=== PATIENT | female | born 1940 | race Caucasian/White ===

== ENCOUNTER → 2016-09-07 | Outpatient (CLI) | payer MEDICARE ==
[~2016-09-07] MED LIST: ASPI81TA85 PO; CALC1TAB21 PO; CENTTAB PO; COQ-100C2 PO; FERR325T88 PO; FISH100049 PO; FURO20TA2 PO; FURO20VL IM; K-TA1TAB PO; LEVO150T7 PO; METF1000 PO; PARO40TA PO; PRAV10TA PO; RANI1TAB6 PO; SING10TA32 PO; VITA-115 PO; VITA10006 PO; VITA100T20 PO; VITA2000 PO
[2016-09-07 13:46] LABS: INR 0.95
[2016-09-07 13:47] LABS: MEAN CORPUSCULAR HGB CONC 31.9 g/dl (32.0-36.5); MEAN CORPUSCULAR VOLUME 100.3 fl (80.0-96.0); RED CELL DISTRIBUTION WIDTH 12.4 % (11.5-14.5); WHITE BLOOD COUNT 5.9 K/mm3 (4.0-10.0)
[2016-09-07 14:10] LABS: ALBUMIN 3.8 GM/DL (3.2-5.2); ALBUMIN/GLOBULIN RATIO 1.06 (1.00-1.93); ALKALINE PHOSPHATASE 79 U/L (45-117); ALT/SGPT 24 U/L (12-78); ANION GAP 5 MEQ/L (8-16); AST/SGOT 20 U/L (15-37); BILIRUBIN,TOTAL 0.3 MG/DL (0.2-1.0); BLOOD UREA NITROGEN 26 MG/DL (7-18); CALCIUM LEVEL 8.6 MG/DL (8.8-10.2); CARBON DIOXIDE LEVEL 31 MEQ/L (21-32); CHLORIDE LEVEL 105 MEQ/L (98-107); CREATININE FOR GFR 0.91 MG/DL (0.55-1.02); GLOMERULAR FILTRATION RATE > 60.0 (>39); GLUCOSE, FASTING 96 MG/DL (83-110); POTASSIUM SERUM 4.5 MEQ/L (3.5-5.1); SODIUM LEVEL 141 MEQ/L (136-145); TOTAL PROTEIN 7.4 GM/DL (6.4-8.2)
--- NOTE | 2016-09-07 14:57 | REP ---
PA and lateral chest: There are no comparisons. Room the right hemidiaphragm is elevated. The visualized lung rivera are clear. Cardiac size is normal. The maria d, mediastinum, and bony thorax are unremarkable. Impression: Essentially negative PA and lateral chest. Right hemidiaphragm is elevated. No comparison studies to determine if this is chronic or acute. Half Signed by Brad Lemus MD 09/07/2016 01:35 P
--- NOTE | 2016-09-07 18:33 | ECGEPIP ---
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
== END ==
LOC: M ADMPAT 09:36
PROVIDERS: ATTEND Orthopaedic Surgery
DX: Z01.818 Encounter for other preprocedural examination (principal); M17.11 Unilateral primary osteoarthritis, right knee; I45.10 Unspecified right bundle-branch block; Z79.899 Other long term (current) drug therapy

== ENCOUNTER 2016-09-18 07:03 | Inpatient (IN) | payer MEDICARE ==
[2016-09-07 11:31] VITALS: BP 186/103
[2016-09-07 11:35] VITALS: BP 178/70
--- NOTE | 2016-09-10 18:31 | HPE ---
DATE OF ADMISSION: 09/18/2016 HISTORY OF PRESENT ILLNESS: This is a pleasant female with continuing symptomatic knee osteoarthritis. She has consented for a right total knee arthroplasty per Dr. Derrick Calderón. Medical optimization is scheduled today with her primary care provider, Dr. Philippe. X-rays are consistent with advanced osteoarthritis. ALLERGIES: None known to drugs. MEDICATIONS: List includes: - paroxetine 40 mg - vitamin D 1000 units, one tablet by mouth with dinner meal daily - furosemide 20 mg one by mouth every day - metformin HCl ER 1000 mg two by mouth daily - potassium chloride 10 mEq/100 - calcium 600 plus D 600/200 mg one by mouth every day - FerrouSul 325 (65 iron) - Co-Q10 1000 mg once a day - Singulair 10 mg one by mouth every day - Synthroid 150 mcg one by mouth every day - Centrum Silver one by mouth every day - vitamin D3 Super Strength 2000 units one by mouth every day - vitamin C 500 mg - fish oil 1000 mg -vitamin B12 - pravastatin sodium 10 mg one every night at bedtime - Aspirin-Lo 81 mg one by mouth every day - ranitidine HCl 150 mg one by mouth every day MEDICAL PROBLEM LIST: Includes: 1. Bilateral knee osteoarthritis. 2. Diabetes. 3. Hypertension. 4. Heart disease. 5. Thyroid disease. 6. Hope esophagitis. PAST SURGICAL HISTORY: Positive for: 1. Hernia repair. 2. Bypass. 3. Eye surgery. 4. Tummy tuck. 5. Thyroid. FAMILY HISTORY: Pertinent for hypertension, heart disease, hypercholesteremia, arthritis, diabetes, hypertension. SOCIAL HISTORY: Denies smoking or ethanol intake. REVIEW OF SYSTEMS: She denies chest pain, shortness of breath, dyspnea on exertion, fever, chills, malaise, upper respiratory or urinary tract symptoms. States that she just is getting over a little upper respiratory cold. She is otherwise doing fine. It is not being treated. PHYSICAL EXAMINATION: Height 62.5 inches, weight 214. Temperature 97.5, blood pressure (BP) 140/68, pulse 60. She is a pleasant, overweight white female in no acute distress, alert and oriented times three. Mood and affect are appropriate. She is ambulating without overt antalgia with assistance. Some favoring of the left lower extremity. Right lower extremity was inspected. Skin temperature, sensory, motor within normal limits. She has a varus osteoarthritic alignment with positive medial joint line tenderness to palpation. Crepitance is noted about the knee through flexion and extension. The patellofemoral joint is concentric, static and dynamic. The knee is stable about the collateral ligaments, patella, and quad tendons without palpable defects. Bowel sounds are times four, soft, nontender. Chest rises symmetrically. Lungs clear to auscultation. Neck supple. Negative jugular venous distention (JVD) or bruits. Normocephalic. Chest x-ray date of exam, 09/07/2016, shows essentially negative PA and lateral chest. Right hemidiaphragm is elevated. No comparison studies to determine if this is chronic or acute, as read by Dr. Brad Lemus. EKG read by Dr. Katie Washington: Sinus rhythm with right bundle branch block. Labs showed BUN at 26, anion gap at 5, calcium level 0.6, ESR 55, RBC 3.67, hemoglobin 11.7, mean corpuscular volume 100.3, mean corpuscular hemoglobin concentration 31.9, leukocyte esterase urine auto was elevated trace. Nasal sinus culture showed Staphylococcus aureus moderate. IMPRESSION: 1. Symptomatic right knee osteoarthritis. 2 . Patient consented for right total knee arthroplasty per Dr. Derrick Calderón. 2 Medical optimization scheduled today with primary care physician (PCP), Dr. Philippe. 4. 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 5. Sequential compression devices (SCDs) and thromboembolic deterrents (TEDs) in OR. MTDD
[~2016-09-18] VITALS: Ht 160 cm; Wt 93.0 kg
[2016-09-18] VITALS (7 sets, daily range): BP systolic 138–163; BP diastolic 62–71
[2016-09-18] MEDS ORDERED: LR 1,000 ML IV SCH ×2 (07:15→12:00)
[2016-09-18] MEDS ORDERED: COUM1TAB17 PO (07:52)
[2016-09-18] MEDS ORDERED: fentaNYL 100 MCG/2 ML INJECTION (J3010) As Ordered ONE ×3 (08:20→10:09)
[2016-09-18] MEDS ORDERED: MIDAZOLAM INJ 2 MG/2 ML VIAL (J2250) As Ordered ONE ×2 (08:20→10:09)
[2016-09-18] MEDS ORDERED: ceFAZolin 1GM INJ (J0690) As Ordered ONE (09:07)
[2016-09-18] MEDS ORDERED: BUPIVACAINE HCL 0.25% 30 ML VIAL As Ordered ONE (09:07)
[2016-09-18] MEDS ORDERED: TRANEXAMIC ACID 100 MG/ML 10ML VIAL As Ordered ONE (09:07)
[2016-09-18] MEDS ORDERED: MIDAZOLAM INJ 2 MG/2 ML VIAL (J2250) IV ONE (09:30)
[2016-09-18] MEDS ORDERED: fentaNYL 100 MCG/2 ML INJECTION (J3010) IV ONE (09:30)
[2016-09-18] MEDS ORDERED: EPINEPHrine INJ 1 MG/ML 1ML VIAL/AMP As Ordered ONE (09:37)
[2016-09-18] MEDS ORDERED: ROPIvacaine 0.5% 30 ML INJECTION (J2795) ONE (09:40)
[2016-09-18] MEDS ORDERED: dexameTHASONE 10 MG/1 ML VIAL PRES.FREE (J1100) ONE (09:40)
[2016-09-18] MEDS ORDERED: ONDANSETRON 4MG/2ML VIAL (J2405) As Ordered ONE (10:09)
[2016-09-18] MEDS ORDERED: PROPOFOL 200 MG/20 ML VIAL As Ordered ONE (10:09)
[2016-09-18] MEDS ORDERED: LIDOCAINE 2% INJ 100 MG/5 ML SDV (FOR ANES.) As Ordered ONE (10:09)
[2016-09-18] MEDS ORDERED: ePHEDrine SULFATE 25 MG/5 ML(5MG/ML) SYRINGE As Ordered ONE ×2 (10:10→10:11)
[2016-09-18] MEDS ORDERED: EPINEPHrine INJ 1 MG/ML 1ML VIAL/AMP XX ONE (10:33)
[2016-09-18] MEDS ORDERED: ceFAZolin 1GM INJ (J0690) IR ONE (10:33)
[2016-09-18] MEDS ORDERED: fentaNYL 100 MCG/2 ML INJECTION (J3010) XX ONE (10:33)
[2016-09-18] MEDS ORDERED: BUPIVACAINE HCL 0.25% 30 ML VIAL XX ONE (10:33)
[2016-09-18] MEDS ORDERED: TRANEXAMIC ACID 100 MG/ML 10ML VIAL XX ONE (10:33)
[2016-09-18] MEDS ORDERED: MORPHINE PCA 1MG/ML 100ML CADD As Ordered ONE (11:48)
--- NOTE | 2016-09-18 11:55 | RO ---
DATE OF PROCEDURE: 09/18/2016 PREOPERATIVE DIAGNOSIS: Right knee osteoarthritis. POSTOPERATIVE DIAGNOSIS: Right knee osteoarthritis. PROCEDURE: Right total knee arthroplasty using PFC rotating platform, size 3 femur, size 3 tibia, 15 polyethylene and a 35 patellar button. SURGEON: Dr. Derrick Calderón CUSTOMER ACQUISITION SPECIALIST: Anastasia Calderón ANESTHESIA: Spinal. ESTIMATED BLOOD LOSS: Less than 50. COMPLICATIONS: None. INDICATIONS: 75-year-old woman who has had gradually worsening right knee pain with severe arthritis. She wished to go ahead with knee replacement having failed conservative management. She understood the nature of the procedure, the risks of bleeding, infection, damage to nerves, vessels, persistent pain, wear, loosening, blood clots, medical problems, among others. Preoperative clearance was obtained. PROCEDURE: The patient was taken to the operating room and placed in supine position after spinal anesthesia was induced. The right lower extremity was prepped and draped in the usual sterile fashion. Tourniquet was inflated after a time-out was performed. I then created a longitudinal incision over the anterior aspect of the right knee. Sharp dissection was carried down through subcutaneous tissue. I performed a medial parapatellar arthrotomy per routine, everted the patella, removed osteophytes from the femur, and then used the canal initiating reamer on the femoral side set at 5 degrees of valgus and 10. This was pinned in place by the habilitation assistant and the distal femoral cut was made by the habilitation assistant as I protected soft tissues. I then sized the femur to be a 3 and the external rotation guide was drilled and placed on the end of the femur. It was noted that her bone was quite soft, particularly along the medial side, but there were no cystic changes noted. The cutting block was then placed, size 3, this was pinned in place in the usual fashion. I made the remainder of the four cuts, protecting soft tissues. I directed our attention to the tibia. The tibial alignment guide was then placed. I was hoping to get away with a cruciate retaining knee. She did have some varus, but that was my plan, so I started with the 3 degrees slope cutting block and pinned this in place at just about a millimeter or two up from the low side of the tibia. The tibial bone was removed. Soft tissue was removed from either side of the knee and significant osteophytes removed from the posterior aspect the knee. I then made sure I had performed a medial release that was adequate and I did have to extend the medial release to some degree. I then used the spacer blocks, and a 12.5 and 15 were the sizes I was choosing between, and I was leaning more toward the 15, which seemed to a very good stability and very good alignment. The posterior cruciate ligament (PCL) was still intact. I continued with the cruciate retaining knee. I went ahead and prepared the tibia at this point by drilling and broaching using a size 3 tibial tray and then the trial components were inserted and excellent fit and alignment and tissue balance was noted. I used the size 15 and this was not overly tight and I was very pleased with the stability and range of motion. I then freehand cut the patella, removing about 7 mm of bone and sized the patella be a 35. Drilled the three holes, placed the trial button and put the knee through a range of motion. The patella tracked quite nicely and was of appropriate fit. The drill holes were placed in the end of the femur. I removed the trial components. The habilitation assistant prepared the bone cement in the modern technique on the back table. I irrigated copiously and dried the bony surfaces. Cemented on the tibial tray, impacting it in place, removing excess bone cement. Placed in a polyethylene size 15 rotating platform, size 3, and then cemented on the femoral component, having placed a little bit of cement on the posterior aspect of the femoral component. I impacted this in place, removed excess bone cement, and cemented on the patella and held this in place with the clamp. Again, removed excess bone cement. I again irrigated copiously. I placed the tranexamic acid (TXA) solution in the knee. I then started closing the deep layer with #1 Vicryl suture. A couple of stitches were able to be placed while the patellar clamp was held in place. These stitches were proximally spaced out. I then once the cement had hardened removed the patellar clamp and placed an additional two #1 Vicryl sutures around the patella and then copiously irrigated. I then placed the Stratafix suture single arm starting at the midportion of patella and I worked in one direction and the habilitation assistant worked in the other direction. A watertight closure was noted. I put the knee through a range of motion and there was excellent range of motion and stability with no clicking and the closure was watertight. I again irrigated and closed the subcutaneous with #2-0 Vicryl and the skin with neha. Sterile dressing was applied. I did insert a PainBuster catheter just through the superolateral aspect the knee and this was secured appropriately. Sterile dressing was applied. Tourniquet was deflated. She was taken to recovery room in stable condition. There were no known complications. The plan will be routine postoperative for a knee replacement.
[2016-09-18] MEDS: HumaLOG INSULIN (NovoLOG) PER UNIT SC SCH ×3 (12:00→20:06)
[2016-09-18] MEDS ORDERED: NALOXONE INJ 0.4 MG/1 ML VIAL (J2310) IV PRN (12:00)
[2016-09-18] MEDS ORDERED: MORPHINE PCA 1MG/ML 100ML CADD IV PRN (12:00)
[2016-09-18] MEDS ORDERED: PERCOCET 5MG/325MG TAB PO PRN (12:00)
[2016-09-18] MEDS ORDERED: EPIDURAL/PCA KEYS XX PRN (12:00)
[2016-09-18] MEDS ORDERED: ONDANSETRON 4MG/2ML VIAL (J2405) IV PRN ×3 (12:00)
[2016-09-18] MEDS ORDERED: METOCLOPRAMIDE INJ 10MG/2ML VIAL (J2765) IV PRN (12:00)
[2016-09-18] MEDS ORDERED: NALBUPHINE HCL 10 MG/ML AMP (J2300) IV PRN (12:00)
[2016-09-18] MEDS ORDERED: fentaNYL 100 MCG/2 ML INJECTION (J3010) IV PRN (12:00)
[2016-09-18] MEDS ORDERED: PATIENT IS CURRENTLY ON AN ON-Q PAIN BUSTER PAIN RELIEF SYSTEM XX SCH (12:00)
[2016-09-18] MEDS ORDERED: diphenhydrAMINE INJ 50MG/ML VIAL (J1200) IV PRN (12:00)
[2016-09-18] MEDS ORDERED: DEXTROSE 50% 50 ML SYRINGE IV PRN (13:15)
[2016-09-18] MEDS ORDERED: GLUCAGON FOR INJ 1 MG VIAL (J1610) SC PRN (13:15)
[2016-09-18] MEDS ORDERED: GLUCOSE 4 GM CHEW TABLET PO PRN (13:15)
--- NOTE | 2016-09-18 14:56 | CR ---
DATE OF CONSULTATION: 09/18/2016 CONSULTATION REPORT FOR: Dr. Calderón PRIMARY CARE PROVIDER: Dr. Jake Philippe CHILD CENTER ASSISTANT: Dr. Keyes BRADDER: Dr. Gonzalez REASON FOR CONSULTATION: Medical management. HISTORY OF PRESENT ILLNESS: This is a 75-year-old female patient with underlying medical history of obstructive sleep apnea, type 2 diabetes, history of gastric bypass, coronary artery disease with valvular heart disease, hypothyroidism, hypertension, Hope's esophagitis, osteoarthritis, depression, chronic obstructive pulmonary disease (COPD), congestive heart failure. Patient admitted under orthopedic service for right total knee replacement surgery, status post surgery. Seen in the postanesthesia care unit (PACU). Surgery done by Dr. Derrick Calderón. Patient comfortable in no acute distress. Denies any significant pain. Denies any chest pain, pressure, or discomfort. Denies any shortness of breath. Denies any fevers or chills. Uses continuous positive airway pressure (CPAP) at night. Does not use oxygen at home. Denies smoking or alcohol usage. Denies illicit drug use. ALLERGIES: No known drug allergies. PAST MEDICAL HISTORY: 1. Type 2 diabetes, noninsulin dependent. 2. Hypertension. 3. Coronary artery disease with valvular heart disease. 4. Hypothyroidism. 5. Hope's esophagitis. 6. Obstructive sleep apnea. 7. COPD. 8. Osteoarthritis. 9. Hypothyroidism. PAST SURGICAL HISTORY: 1. Gastric bypass. 2. Tummy tuck. 3. Abdominal hernia repair. 4. Eye surgery for retinal detachment. 5. Thyroid resection. SOCIAL HISTORY: Patient lives at home with and family. Denies history of smoking, illicit drug use, or alcohol intake. FAMILY HISTORY: Parents with coronary artery disease, hypertension, dyslipidemia, diabetes. REVIEW OF SYSTEMS: Patient denies any headache, vision change, hearing change. Denies any lightheadedness. Denies any nausea, vomiting, shortness of breath, coughing. Denies any chest pain, pressure, discomfort, palpitations. Denies any abdominal pain, diarrhea, constipation. Denies any dysuria. Denies any lower extremity swelling, bruising, bleeding. Denies any depression or suicidality. PHYSICAL EXAMINATION: VITAL SIGNS: Temperature 99.2, pulse 62, respirations 16, blood pressure 150/65, pulse oximetry 99% on 2 liters nasal cannula. GENERAL: Patient alert and oriented times three in no acute distress. Obese. HEENT: Normocephalic, atraumatic. PULMONARY: Bilaterally clear to auscultation. CARDIAC: Regular rate and rhythm. A 2/6 systolic murmur. ABDOMEN: Obese, soft, nontender. Hypoactive bowel sounds. EXTREMITIES: Dorsalis pedis (DP)/posterior tibialis (PT) pulses 2+. No edema. ASSESSMENT AND PLAN: This is a 75-year-old female patient with underlying medical history of obesity with history of gastric bypass, coronary artery disease with valvular heart disease, obstructive sleep apnea, type 2 diabetes, hypertension, hypothyroidism, chronic obstructive pulmonary disease (COPD), admitted under orthopedic service for right total knee replacement surgery, status post surgery. Medicine consulted for medical management. 1. Osteoarthritis status post right total knee replacement surgery by Dr. Derrick Calderón. Pain regimen, deep vein thrombosis (DVT) prophylaxis, physical therapy as per orthopedics. Bowel regimen prescribed. Patient on Coumadin for DVT prophylaxis. Followup INR. 2. Type 2 diabetes, withholding metformin. Insulin as per protocol. Followup fingersticks. 3. Obstructive sleep apnea, obstructive sleep apnea (SANDY) protocol. Continue continuous positive airway pressure (CPAP) at night. 4. Hypertension. Continue blood pressure medication. Will followup kidney function tomorrow morning prior to resuming Lasix. 5. Coronary artery disease. Given the patient is on Coumadin for DVT prophylaxis, will hold aspirin until the patient is off Coumadin. In the meantime, continue home medication. In the meantime, also continue statin. 6. Depression. Continue home medication. 7. COPD. Continue home medication. Patient does not have any wheeze. 8. Hope's esophagitis. Continue home medication. Outpatient followup. 9. History of congestive heart failure (CHF), compensated. Will restart Lasix tomorrow along with vitamin K. Followup kidney functions. 10. Dyslipidemia. Continue statin. 11. Deep vein thrombosis (DVT) prophylaxis. Patient on Coumadin as per orthopedics. DISPOSITION: As per primary team.
[2016-09-18] MEDS: MIRALAX *UNIT DOSE* 17GM PACKET PO SCH (16:20)
[2016-09-18] MEDS ORDERED: WARFARIN SOD 5 MG TAB PO SCH (17:00)
[2016-09-18] MEDS: FERROUS SULFATE 325MG TAB PO SCH (17:28)
[2016-09-18] MEDS: MONTELUKAST 10 MG TAB PO SCH (17:28)
[2016-09-18] MEDS: PARoxetine 20 MG TAB PO SCH (17:28)
[2016-09-18] MEDS: FUROSEMIDE 20 MG TAB PO SCH (17:28)
[2016-09-18] MEDS: LR 1,000 ML IV SCH (17:29)
[2016-09-18] MEDS: FAMOTIDINE 20 MG TAB PO SCH (17:29)
[2016-09-18] MEDS: POTASSIUM CHLORIDE 10 MEQ SR TABLET PO SCH (17:31)
[2016-09-18] MEDS: PRAVASTATIN 10 MG TAB PO SCH (20:06)
[2016-09-18] MEDS: SENOKOT S TAB PO SCH (20:06)
[2016-09-19 01:45] VITALS: BP 165/65
[2016-09-19] MEDS: LR 1,000 ML IV SCH (03:46)
[2016-09-19 06:00] VITALS: BP 145/60
[2016-09-19] MEDS: LEVOTHYROXINE 0.15 MG TAB (150 MCG) PO SCH (06:05)
[2016-09-19] MEDS ORDERED: PERCOCET 5MG/325MG TAB PO PRN (06:45)
[2016-09-19] MEDS ORDERED: ONDANSETRON 4 MG TAB (S0181) PO PRN (06:45)
[2016-09-19 07:03] LABS: INR 1.13; MEAN CORPUSCULAR HEMOGLOBIN 31.8 pg (27.0-33.0); MEAN CORPUSCULAR HGB CONC 31.6 g/dl (32.0-36.5); MEAN CORPUSCULAR VOLUME 100.7 fl (80.0-96.0); RED CELL DISTRIBUTION WIDTH 12.6 % (11.5-14.5); WHITE BLOOD COUNT 8.8 K/mm3 (4.0-10.0)
[2016-09-19 07:11] LABS: ANION GAP 8 MEQ/L (8-16); BLOOD UREA NITROGEN 19 MG/DL (7-18); CALCIUM LEVEL 8.2 MG/DL (8.8-10.2); CARBON DIOXIDE LEVEL 27 MEQ/L (21-32); CHLORIDE LEVEL 104 MEQ/L (98-107); GLOMERULAR FILTRATION RATE > 60.0 (>39); GLUCOSE, FASTING 150 MG/DL (83-110); MAGNESIUM LEVEL 1.9 MG/DL (1.8-2.4); POTASSIUM SERUM 3.9 MEQ/L (3.5-5.1); SODIUM LEVEL 139 MEQ/L (136-145)
[2016-09-19] MEDS: MIRALAX *UNIT DOSE* 17GM PACKET PO SCH ×2 (09:00)
[2016-09-19] MEDS: MOM 30ML SUSPENSION UDC PO SCH (09:00)
[2016-09-19] MEDS: MULTIVITAMINS/MINERALS THERAP 1 TAB PO SCH (09:07)
[2016-09-19] MEDS: SENOKOT S TAB PO SCH ×2 (09:08→21:27)
[2016-09-19] MEDS: MONTELUKAST 10 MG TAB PO SCH (09:09)
[2016-09-19] MEDS: FUROSEMIDE 20 MG TAB PO SCH (09:09)
[2016-09-19] MEDS: VITAMIN D 1,000 INTERNATIONAL UNITS TABLET PO SCH (09:09)
[2016-09-19] MEDS: PARoxetine 20 MG TAB PO SCH (09:09)
[2016-09-19] MEDS: POTASSIUM CHLORIDE 10 MEQ SR TABLET PO SCH (09:09)
[2016-09-19] MEDS: FERROUS SULFATE 325MG TAB PO SCH (09:09)
[2016-09-19] MEDS: ASCORBIC ACID 500 MG TAB PO SCH (09:10)
[2016-09-19] MEDS: FAMOTIDINE 20 MG TAB PO SCH (09:10)
[2016-09-19] MEDS: HumaLOG INSULIN (NovoLOG) PER UNIT SC SCH ×4 (09:11→21:00)
--- NOTE | 2016-09-19 09:13 | REP ---
AP LATERAL RIGHT KNEE: 09/19/2016. Clinical history: Status post right total knee arthroplasty. Two-view show skin neha anteriorly and a right total knee arthroplasty with the prosthetic bone cement interface normal for the distal femur and proximal tibia. The patellar component was unremarkable. The relationship between the [place] bone, prosthetic components and each other was normal throughout. Some postoperative edema noted which is normal. Impression: 1. Status post right total knee arthroplasty. Signed by Jorge Sandoval MD 09/19/2016 09:37 A
[2016-09-19 10:00] VITALS: BP 166/72
[2016-09-19] MEDS: PERCOCET 5MG/325MG TAB PO PRN ×3 (12:54→21:27)
[2016-09-19 14:00] VITALS: BP 165/74
[2016-09-19] MEDS ORDERED: WARFARIN SOD 5 MG TAB PO ONE (17:00)
[2016-09-19 18:00] VITALS: BP 112/54
--- NOTE | 2016-09-19 19:28 | IPN ---
DATE: 09/19/2016 SUBJECTIVE: Patient seen and examined. No acute events overnight. Denies any fever, chills, chest pain, pressure or discomfort. Denies any shortness of breath. VITAL SIGNS: Temperature 97.8, pulse 62, respirations 16, blood pressure 166/72, pulse oximetry 95% on room air. LABORATORY DATA: WBC 8.8, hemoglobin and hematocrit 10 over 31.7, platelets 257. Chemistry: Sodium 139, potassium 3.9, chloride 104, bicarbonate 27, BUN 19, creatinine 0.9. INR 1.13. PHYSICAL EXAMINATION: GENERAL: Patient obese, alert and oriented times three, in no acute distress. HEENT: Normocephalic, atraumatic. PULMONARY: Bilaterally clear to auscultation. CARDIAC: Regular rate and rhythm. A 2/6 systolic murmur. ABDOMEN: Soft, obese, nontender. Hypoactive bowel sounds. EXTREMITIES: Dorsalis pedis (DP) and posterior tibial (PT) pulses 2+, no edema. Dressing clean, dry and intact. ASSESSMENT AND PLAN: A 75-year-old female patient with underlying medical history of obesity, history of gastric bypass, coronary arterial disease with valvular heart disease, obstructive sleep apnea on continuous positive airway pressure (CPAP) at home, type 2 diabetes, hypertension, hypothyroidism, chronic obstructive pulmonary disease (COPD), admitted under orthopedic service for right total knee replacement surgery. Status post surgery, medicine consulted for medical management. 1. Osteoarthritis, status post right total knee replacement surgery by Dr. Derrick Calderón. Pain regimen, deep venous thrombosis (DVT) prophylaxis, physical therapy as per orthopedics. Bowel regimen prescribed. Patient on Coumadin for DVT prophylaxis. Followup international normalized ratio (INR). 2. Type 2 diabetes. Withholding Metformin. Insulin as per protocol. Followup fingersticks. 3. Obstructive sleep apnea (SANDY). SANDY protocol. Continue CPAP at night. 4. Hypertension. Continue blood pressure medication. Followup kidney function. Resume Lasix. 5. Coronary arterial disease with valvular heart disease. Given patient on Coumadin for DVT prophylaxis, aspirin has been on hold. Resume aspirin once patient is off Coumadin. Continue home medication in the meantime. Continue statin. 6. Depression. Continue home medication. 7. Chronic obstructive pulmonary disease (COPD). Continue home medications. Patient not having any wheeze. 8. Hope's esophagitis. Continue home medications. Outpatient followup. 9. History of congestive heart failure (CHF), compensated. Lasix restarted. Followup potassium and kidney function. 10. Dyslipidemia. Continue statin. 11. DVT prophylaxis. Patient on Coumadin as per orthopedics. DISPOSITION: As per orthopedic team.
[2016-09-19] MEDS: PRAVASTATIN 10 MG TAB PO SCH (21:27)
[2016-09-19 22:00] VITALS: BP 155/66
[2016-09-20] MEDS: PERCOCET 5MG/325MG TAB PO PRN ×2 (02:37→06:33)
[2016-09-20 06:00] VITALS: BP 148/56
[2016-09-20] MEDS: LEVOTHYROXINE 0.15 MG TAB (150 MCG) PO SCH (06:31)
[2016-09-20 07:17] LABS: INR 1.31
[2016-09-20 07:21] LABS: MEAN CORPUSCULAR HGB CONC 32.8 g/dl (32.0-36.5); MEAN CORPUSCULAR VOLUME 97.5 fl (80.0-96.0); RED CELL DISTRIBUTION WIDTH 12.2 % (11.5-14.5); WHITE BLOOD COUNT 10.8 K/mm3 (4.0-10.0)
[2016-09-20] MEDS: HumaLOG INSULIN (NovoLOG) PER UNIT SC SCH (07:30)
[2016-09-20 07:33] LABS: ANION GAP 7 MEQ/L (8-16); BLOOD UREA NITROGEN 17 MG/DL (7-18); CALCIUM LEVEL 8.3 MG/DL (8.8-10.2); CARBON DIOXIDE LEVEL 28 MEQ/L (21-32); CHLORIDE LEVEL 104 MEQ/L (98-107); CREATININE FOR GFR 0.85 MG/DL (0.55-1.02); GLOMERULAR FILTRATION RATE > 60.0 (>39); GLUCOSE, FASTING 165 MG/DL (83-110); MAGNESIUM LEVEL 2.1 MG/DL (1.8-2.4); POTASSIUM SERUM 4.1 MEQ/L (3.5-5.1); SODIUM LEVEL 139 MEQ/L (136-145)
[2016-09-20] MEDS ORDERED: COUM2.5T11 PO (08:03)
[2016-09-20] MEDS ORDERED: PERC5TAB6 PO (08:03)
[2016-09-20] MEDS: MONTELUKAST 10 MG TAB PO SCH (08:28)
[2016-09-20] MEDS: VITAMIN D 1,000 INTERNATIONAL UNITS TABLET PO SCH (08:28)
[2016-09-20] MEDS: FERROUS SULFATE 325MG TAB PO SCH (08:28)
[2016-09-20] MEDS: PARoxetine 20 MG TAB PO SCH (08:28)
[2016-09-20] MEDS: FAMOTIDINE 20 MG TAB PO SCH (08:28)
[2016-09-20] MEDS: MOM 30ML SUSPENSION UDC PO SCH (08:28)
[2016-09-20] MEDS: ASCORBIC ACID 500 MG TAB PO SCH (08:29)
[2016-09-20] MEDS: MULTIVITAMINS/MINERALS THERAP 1 TAB PO SCH (08:29)
[2016-09-20] MEDS: MIRALAX *UNIT DOSE* 17GM PACKET PO SCH ×2 (08:29→09:00)
[2016-09-20] MEDS: POTASSIUM CHLORIDE 10 MEQ SR TABLET PO SCH (09:00)
[2016-09-20] MEDS: SENOKOT S TAB PO SCH (09:00)
[2016-09-20] MEDS: FUROSEMIDE 20 MG TAB PO SCH (09:00)
[2016-09-20 10:00] VITALS: BP 142/70
[2016-09-20] MEDS ORDERED: PREVNAR 13 VACCINE SYRINGE (CPT CODE:90670) IM ONE (12:00)
[2016-09-20] MEDS ORDERED: WARFARIN SOD 3 MG TAB PO SCH (17:00)
--- NOTE | 2016-09-20 18:52 | IPN ---
DATE: 09/20/2016 The patient seen and examined. No acute events overnight. Reported pain from surgical site to be within tolerable limits. Denies any chest pain, pressure or discomfort. Denies any shortness of breath. VITAL SIGNS: Temperature 99.4, pulse 70, respirations 18, blood pressure 142/70. Pulse 70, respirations 18, blood pressure 142/70, pulse oximetry 93% on room air. LABORATORY: WBC 10.8, hemoglobin and hematocrit 9.6 over 29.4. Platelets 243. Chemistry: Sodium 139, potassium 4.1, chloride 104, bicarbonate 28, BUN 17, creatinine 0.85. PHYSICAL EXAMINATION: Patient obese. Alert and oriented times three. No acute distress. HEENT: Normocephalic, atraumatic. PULMONARY: Bilateral clear to auscultation. CARDIAC: Regular rate and rhythm. 2 out of 6 systolic murmur. ABDOMEN: Soft, nontender, hypoactive bowel sounds. EXTREMITIES: Dorsalis pedis/posterior tibial (DP/PT) pulses 2+. No edema. Dressings clean, dry, intact. ASSESSMENT AND PLAN: This is a 75-year-old female patient with underlying medical history of obesity. History of gastric bypass, coronary artery disease, valvular heart disease, obstructive sleep apnea on CPAP at home, type 2 diabetes, hypertension, hypothyroidism, chronic obstructive pulmonary disease (COPD), admitted under orthopedic service for right total knee replacement surgery, status post surgery. Medicine consulted for medical management. 1. Osteoarthritis. Status post right total knee replacement by Dr. Derrick Calderón. Pain regimen, DVT prophylaxis, physical therapy as per orthopedics. Bowel regiment prescribed. Coumadin for DVT prophylaxis. Followup INR. 2. Type 2 diabetes. Currently on insulin as per protocol. Will restart metformin once the patient is going home. Followup fingersticks. 3. Obstructive sleep apnea. Continue CPAP. 4. Hypertension. Continue blood pressure medication. Followup kidney function. Resume Lasix. 5. Coronary arterial disease with valvular heart disease. Holding aspirin given patient on Coumadin right now. Will resume once patient is off Coumadin. Continue home medication. Continue statin. 6. Depression. Continue home medication. 7. COPD. Continue home medication. The patient not having any wheeze. 8. Hope's esophagitis. Outpatient followup. Continue current medication. 9. CHF. Compensated. Lasix restarted. Followup kidney function and potassium. 10. Dyslipidemia. Continue statin. 11. DVT prophylaxis. Coumadin as per primary team. DISPOSITION: Pending physical therapy as per orthopedic team.
--- NOTE | 2016-09-24 10:06 | DSES ---
DATE OF ADMISSION: 09/18/2016 DATE OF DISCHARGE: 09/20/2016 ADMITTING DIAGNOSIS: Symptomatic right knee osteoarthritis. DISCHARGE DIAGNOSIS: Status post right total knee arthroplasty. HISTORY OF PRESENT ILLNESS: This is a pleasant female with continuing symptomatic right knee osteoarthritis. She consented for right total knee arthroplasty per Dr. Derrick Calderón. Medical optimization per Dr. Philippe. X-rays are consistent with advanced osteoarthritis. OPERATION PERFORMED: Right total knee arthroplasty. The patient uneventfully underwent right total knee arthroplasty under spinal anesthesia with monitored anesthesia care (MAC) and was returned to postanesthesia care unit (PACU) comfortable. Our hospital team discharged the patient on 09/20/2016 with the following instructions: Weightbearing as tolerated right lower extremity with walker. Diet as regular. Percocet as needed, pain. Coumadin and thromboembolic deterrent (NILS) stockings times 30 days. Optifoam dressing change in 4 days' time. Followup will be in office 12-14 days for wound check, staple removal. The patient is encouraged to contact our office with increased redness, drainage , radiating right lower extremity pain, fever greater than 101 or further concerns. [id number]
== END 2016-09-20 12:50 | disposition home health service (06) | DRG 470 ==
LOC: M OR 07:03 → M MS5PR 12:55
PROVIDERS: ADMIT Orthopaedic Surgery; ATTEND Orthopaedic Surgery
PROC: 0SRC0J9 Replacement of Right Knee Joint with Synthetic Substitute, Cemented, Open Approach (ICD-10-PCS; principal; 2016-09-18 09:15)
DX: M17.11 Unilateral primary osteoarthritis, right knee (principal); E11.9 Type 2 diabetes mellitus without complications; I11.0 Hypertensive heart disease with heart failure; K22.70 Barrett's esophagus without dysplasia; E66.9 Obesity, unspecified; G47.33 Obstructive sleep apnea (adult) (pediatric); I25.10 Atherosclerotic heart disease of native coronary artery without angina pectoris; E89.0 Postprocedural hypothyroidism; F32.9 Major depressive disorder, single episode, unspecified; J44.9 Chronic obstructive pulmonary disease, unspecified; I50.9 Heart failure, unspecified; Z98.84 Bariatric surgery status; Z79.84 Long term (current) use of oral hypoglycemic drugs; Z68.36 Body mass index [BMI] 36.0-36.9, adult

== ENCOUNTER → 2017-08-03 | Outpatient (CLI) | payer MEDICARE | LOC: M RAD 09:03 | DX: I67.9 Cerebrovascular disease, unspecified (principal); H90.A21 Sensorineural hearing loss, unilateral, right ear, with restricted hearing on the contralateral side | CPT/HCPCS: 70551 ==

== ENCOUNTER → 2023-04-08 | Outpatient (CLI) | payer MEDICARE, MEDICAID ==
[~2023-04-08] MED LIST changes: -ASPI81TA85 PO; +ASPI81TA86 PO; +COUM1TAB17 PO; +COUM2.5T17 PO; -METF1000 PO; +METF10004 PO; +MONT-5 PO; -PARO40TA PO; +PARO40TA2 PO; +PERC5TAB12 PO; -PRAV10TA PO; +PRAV10TA4 PO; +RANI-397 PO; -RANI1TAB6 PO; -SING10TA32 PO; -VITA100T20 PO; +VITA100T51 PO
[2023-04-08 09:13] LABS: HEMOGLOBIN 11.1 g/dl (12.0-15.5); MEAN CORPUSCULAR HEMOGLOBIN 32.4 pg (27.0-33.0); MEAN CORPUSCULAR HGB CONC 31.7 g/dl (32.0-36.5); PLATELET COUNT, AUTOMATED 263 10^3/uL (150-450); RED BLOOD COUNT 3.43 10^6/uL (4.00-5.40)
[2023-04-08 09:27] LABS: ERYTHROCYTE SEDIMENTATION RATE 66 mm/hr (0-30); INR 0.91
[2023-04-08 09:44] LABS: ALBUMIN 3.5 G/DL (3.2-5.2); ALKALINE PHOSPHATASE 59 U/L (46-116); ALT/SGPT 17 U/L (7.0-40); AST/SGOT 16 U/L (<34); BILIRUBIN,TOTAL 0.2 MG/DL (0.3-1.2); BLOOD UREA NITROGEN 23 MG/DL (9-23); CALCIUM LEVEL 9.2 MG/DL (8.3-10.6); CARBON DIOXIDE LEVEL 23 MMOL/L (20-31); CHLORIDE LEVEL 110 MMOL/L (98-107); CREATININE FOR GFR 0.81 MG/DL (0.55-1.30); GLOMERULAR FILTRATION RATE > 60.0 (>32); GLUCOSE, FASTING 91 MG/DL (74-106); SODIUM LEVEL 142 MMOL/L (136-145); TOTAL PROTEIN 6.7 G/DL (5.7-8.2)
== END ==
LOC: M RAD 08:20
PROVIDERS: ATTEND Orthopaedic Surgery
DX: Z01.818 Encounter for other preprocedural examination (principal); M17.12 Unilateral primary osteoarthritis, left knee; I45.10 Unspecified right bundle-branch block

== ENCOUNTER → 2025-04-12 | Outpatient (CLI) | payer MEDICARE, MEDICAID ==
[~2025-04-12] MED LIST changes: +PRAV10TA PO; -PRAV10TA4 PO
== END ==
LOC: M PLALAB 10:25
PROVIDERS: ATTEND Physician Assistant
DX: H57.12 Ocular pain, left eye (principal)